=== PATIENT | male | born 1980 | race Caucasian/White ===

== ENCOUNTER 2016-08-23 06:02 | Emergency (ER) | payer MEDICAID, OTHER ==
[~2016-08-23] VITALS: Ht 175.3 cm; Wt 77.2 kg
[2016-08-23 06:04] VITALS: Ht 175.3 cm; Wt 77.2 kg
[2016-08-23] MEDS ORDERED: HALOPERIDOL 5 MG INJ IM STA (06:11)
[2016-08-23] MEDS ORDERED: LORAZEPAM 2 MG INJ IM ONE (06:30)
[2016-08-23 07:12] LABS: BASOPHILS % 0.1 % (0.0-2.0); EOSINOPHILS % 0.1 % (0.0-7.0); HEMOGLOBIN 16.4 g/dl (14.0-18.0); LYMPHOCYTES # 0.8 10^3/ul (0.8-2.9); MEAN CORPUSCULAR HEMOGLOBIN 30.1 pg (29.0-33.0); MEAN CORPUSCULAR HGB CONC 34.3 g/dl (32.0-37.0); MEAN CORPUSCULAR VOLUME 87.8 fl (82.0-101.0); MEAN PLATELET VOLUME 9.2 fl (7.4-10.4); MONOCYTE # 0.6 10^3/ul (0.3-0.9); NEUTROPHILS % 83.8 % (39.0-77.0); PLATELET COUNT 266 10^3/UL (140-440); RED BLOOD COUNT 5.47 10^6/ul (4.70-6.10); UNCORRECTED WBC 8.4 10^3/ul (4.8-10.8); WHITE BLOOD COUNT 8.4 10^3/ul (4.8-10.8)
[2016-08-23 07:16] LABS: ADD UMIC YES; URINE BILIRUBIN (Dip) NEGATIVE (NEGATIVE); URINE BLOOD (Dip) NEGATIVE (NEGATIVE); URINE COLOR LT. YELLOW (YELLOW); URINE KETONES (Dip) 15 (NEGATIVE); URINE LEUKOCYTE ESTERASE (Dip) NEGATIVE (NEGATIVE); URINE NITRITE (Dip) NEGATIVE (NEGATIVE); URINE TOTAL PROTEIN (Dip) 1+ (NEGATIVE); URINE UROBILINOGEN (Dip) 0.2 E.U./dL (0.1-1.0)
[2016-08-23 07:33] LABS: ALBUMIN 4.8 g/dl (3.3-4.9)
[2016-08-23 07:34] LABS: CHLORIDE 104 mmol/L (97-110); SODIUM 144 mmol/L (135-144)
[2016-08-23 07:36] LABS: ANION GAP 19 (8-16); ASPARTATE AMINO TRANSFERASE 31 IU/L (15-46); BILIRUBIN,INDIRECT 0.6 mg/dl (0-1.1); BILIRUBIN,TOTAL 0.6 mg/dl (0.2-1.3); CARBON DIOXIDE 25 mmol/L (21-31); CREATININE 0.83 mg/dl (0.61-1.24); POTASSIUM 3.6 mmol/L (3.5-5.1)
[2016-08-23 07:37] LABS: ALANINE AMINOTRANSFERASE 62 IU/L (13-69); ALBUMIN/GLOBULIN RATIO 1.41; ALKALINE PHOSPHATASE 68 IU/L (42-121); BLOOD UREA NITROGEN 11 mg/dl (7-20); CALCIUM 9.6 mg/dl (8.4-10.2); GLUCOSE 115 mg/dl (70-220); TOTAL PROTEIN 8.2 g/dl (6.1-8.1)
[2016-08-23 07:48] LABS: CONDITION 1
[2016-08-23 07:59] LABS: ACETAMINOPHEN < 10.0 ug/ml (10.0-30.0); SALICYLATE < 1.0 mg/dl (5.0-30.0)
[2016-08-23 08:10] LABS: ETHANOL < 10.0 mg/dl
[2016-08-23 08:21] LABS: BARBITURATES NEGATIVE (NEGATIVE)
[2016-08-23 08:22] LABS: BENZODIAZEPINES NEGATIVE (NEGATIVE); CANNABINOIDS NEGATIVE (NEGATIVE); COCAINE NEGATIVE (NEGATIVE)
--- NOTE | 2016-08-23 10:12 | ERA ---
ER Documentation Chief Complaint Date/Time DATE: 08/23/16 TIME: 10:09 Chief Complaint BIB RA, meth use, ranting about "god" states "i am a good person" denies SI HPI Patient is a 36-year-old male who presents with ambulance and police. Please note his history and physical exam is limited secondary to the patient's mental status. The patient was found knocking on doors earlier this morning. He had a similar event last week per police and they said that he was using methamphetamines although he does not tell me this himself. All he says is "I am and ovidio". It is difficult to obtain history otherwise. ROS All systems reviewed and are negative except as per history of present illness. Medications Home Meds Unable to Obtain Active Prescriptions or Reported Meds Allergies Allergies: Coded Allergies: Unknown: Unable to obtain (Unverified , 08/23/16) PMhx/Soc Medical and Surgical Hx: pt denies Medical Hx, pt denies Surgical Hx Hx Alcohol Use: Yes Hx Substance Use: Yes Hx Tobacco Use: Yes Smoking Status: Current every day smoker FmHx Unable to obtain Physical Exam Vitals Vital Signs Date Time Temp Pulse Resp B/P Pulse Ox O2 Delivery O2 Flow Rate FiO2 08/23/16 09:00 98.1 70 20 121/69 98 08/23/16 07:00 98.1 68 20 120/70 98 08/23/16 07:00 98.1 68 20 120/70 98 08/23/16 06:49 98.1 98 20 128/78 98 08/23/16 06:24 98.2 102 20 137/86 98 08/23/16 06:04 98.0 111 20 176/97 100 Physical Exam Const: Agitated Head: Atraumatic Eyes: Normal Conjunctiva ENT: Normal External Ears, Nose and Mouth. Neck: Full range of motion..~ No meningismus. Resp: Clear to auscultation bilaterally Cardio: Regular rate and rhythm, no murmurs Abd: Soft, non tender, non distended. Normal bowel sounds Skin: No petechiae or rashes Back: No midline or flank tenderness Ext: No cyanosis, or edema Neur: Awake but not answering questions appropriately Psych: Agitated and says over and over again "I am an ovidio" Result Diagram: 08/23/16 0650 08/23/16 0650 Results 24 hrs Laboratory Tests Test 08/23/16 06:50 08/23/16 06:57 Acetaminophen Level < 10.0ug/ml Alanine Aminotransferase (ALT/SGPT) 62IU/L Albumin 4.8g/dl Albumin/Globulin Ratio 1.41 Alkaline Phosphatase 68IU/L Anion Gap 19 Aspartate Amino Transf (AST/SGOT) 31IU/L Basophils # 0.010^3/ul Basophils % 0.1% Blood Urea Nitrogen 11mg/dl Calcium Level 9.6mg/dl Carbon Dioxide Level 25mmol/L Chloride Level 104mmol/L Creatinine 0.83mg/dl Direct Bilirubin 0.00mg/dl Eosinophils # 0.010^3/ul Eosinophils % 0.1% Ethyl Alcohol Level < 10.0mg/dl Globulin 3.40g/dl Glucose Level 115mg/dl Hematocrit 48.0% Hemoglobin 16.4g/dl Indirect Bilirubin 0.6mg/dl Lymphocytes # 0.810^3/ul Lymphocytes % 9.0% Mean Corpuscular Hemoglobin 30.1pg Mean Corpuscular Hemoglobin Concent 34.3g/dl Mean Corpuscular Volume 87.8fl Mean Platelet Volume 9.2fl Monocytes # 0.610^3/ul Monocytes % 7.0% Neutrophils # 7.010^3/ul Neutrophils % 83.8% Nucleated Red Blood Cells # 0.010^3/ul Nucleated Red Blood Cells % 0.0/100WBC Platelet Count 39887^3/UL Potassium Level 3.6mmol/L Red Blood Count 5.4710^6/ul Red Cell Distribution Width 13.0% Salicylates Level < 1.0mg/dl Sodium Level 144mmol/L Total Bilirubin 0.6mg/dl Total Protein 8.2g/dl White Blood Count 8.410^3/ul Urine Amphetamines Screen NEGATIVE Urine Barbiturates NEGATIVE Urine Benzodiazepines Screen NEGATIVE Urine Bilirubin NEGATIVE Urine Cannabinoids NEGATIVE Urine Clarity CLEAR Urine Coarse Granular Casts RARE Urine Cocaine Screen NEGATIVE Urine Color LT. YELLOW Urine Epithelial Cells FEW Urine Glucose 0.5%% Urine Granular Casts Urine Hemoglobin NEGATIVE Urine Ketones 15 Urine Leukocyte Esterase NEGATIVE Urine Microscopic RBC 2-5/HPF Urine Microscopic WBC 5-10/HPF Urine Nitrite NEGATIVE Urine Opiates Screen Pending Urine Other RARE Urine Specific [place] 1.020 Urine Total Protein 1+ Urine Urobilinogen 0.2 E.U./dL Urine pH 6.0 Current Medications Medications (Trade) Dose Ordered Sig/Justyn Route PRN Reason Start Time Stop Time Status Last Admin Dose Admin Haloperidol (Haldol) 5 mg ONCE STAT IM 08/23/16 06:11 08/23/16 06:12 DC 08/23/16 06:22 Lorazepam (Ativan) 2 mg ONCE ONCE IM 08/23/16 06:30 08/23/16 06:31 DC 08/23/16 06:22 Procedures/MDM Patient is a 36-year-old male who presents with what appears to be acute psychosis. He needed Haldol and Ativan to protect himself and to protect the staff. The patient had a full workup including laboratory studies and urine drug screen. His urine drug screen was negative for amphetamines even though the police said that he was doing meth. I am concerned that this may be acute psychotic episode and that he may have underlying psychiatric disease. The patient will need a psychiatric evaluation and I have ordered a psychiatric evaluation. He may require 5150 hold based on the result of this evaluation. At this point I do not see any sign of organic etiology for his symptoms. Critical Care: Time: 35 minutes excluding all billable procedures. Treatments/Evaluations: Close monitoring and treatment of unstable vital signs, cardiorespiratory, and neurologic status, while maintaining tight balance of fluid, respiratory, and cardiac interventions. Departure Diagnosis: Primary Impression: Psychosis Qualified Code: F29 - Psychosis, unspecified psychosis type Condition: ADIN Ya MD Aug 23, 2016 10:12
--- NOTE | 2016-08-23 12:01 | PSY ---
Date/Time of Note Date/Time of Note DATE: 08/23/16 TIME: 11:57 Psychiatric Subjective Eval Consent Pt consented to telemedicine: Yes Subjective Evaluation Patient location: emergency Chief Complaint: BIB RA, meth use, ranting about "god" states "i am a good person" denies SI History of present illness 36 yo male BIB police for knocking on random houses' doors. The similar incident happened a week ago. Pt was given Haldol, Ativan in ED. He is awake and alert, but quite disorganized, with disorganized speech. Then asked a questions he just startes or mumbles something inaudible. He appears to respond to IS. I was not able to obtain much of information from him. Past psychiatric history unknown Family History unknown Medical history Problems Medical Problems: (1) Psychosis Status: Acute Allergies: Coded Allergies: Unknown: Unable to obtain (Unverified , 08/23/16) Psychiatric Objective Eval Mental Status Examination: Appearance: Disheveled, Bizarre Eye Contact: Poor Psychomotor Activity: Other Behavior: Bizarre Speech: Slurred, Prolong Speech Latency AFFECT: Guarded Mood: Other Though Process: Tangential, Circumstantial Thought Content: Hallucinations Suicidal: No Homicidal: No Orientation: x2 Cognition: Alert Insight: Impared Judgement: Impared Laboratory Results Laboratory Tests Test 08/23/16 06:50 08/23/16 06:57 Acetaminophen Level < 10.0ug/ml Alanine Aminotransferase (ALT/SGPT) 62IU/L Albumin 4.8g/dl Albumin/Globulin Ratio 1.41 Alkaline Phosphatase 68IU/L Anion Gap 19 Aspartate Amino Transf (AST/SGOT) 31IU/L Basophils # 0.010^3/ul Basophils % 0.1% Blood Urea Nitrogen 11mg/dl Calcium Level 9.6mg/dl Carbon Dioxide Level 25mmol/L Chloride Level 104mmol/L Creatinine 0.83mg/dl Direct Bilirubin 0.00mg/dl Eosinophils # 0.010^3/ul Eosinophils % 0.1% Ethyl Alcohol Level < 10.0mg/dl Globulin 3.40g/dl Glucose Level 115mg/dl Hematocrit 48.0% Hemoglobin 16.4g/dl Indirect Bilirubin 0.6mg/dl Lymphocytes # 0.810^3/ul Lymphocytes % 9.0% Mean Corpuscular Hemoglobin 30.1pg Mean Corpuscular Hemoglobin Concent 34.3g/dl Mean Corpuscular Volume 87.8fl Mean Platelet Volume 9.2fl Monocytes # 0.610^3/ul Monocytes % 7.0% Neutrophils # 7.010^3/ul Neutrophils % 83.8% Nucleated Red Blood Cells # 0.010^3/ul Nucleated Red Blood Cells % 0.0/100WBC Platelet Count 89553^3/UL Potassium Level 3.6mmol/L Red Blood Count 5.4710^6/ul Red Cell Distribution Width 13.0% Salicylates Level < 1.0mg/dl Sodium Level 144mmol/L Total Bilirubin 0.6mg/dl Total Protein 8.2g/dl White Blood Count 8.410^3/ul Urine Amphetamines Screen NEGATIVE Urine Barbiturates NEGATIVE Urine Benzodiazepines Screen NEGATIVE Urine Bilirubin NEGATIVE Urine Cannabinoids NEGATIVE Urine Clarity CLEAR Urine Coarse Granular Casts RARE Urine Cocaine Screen NEGATIVE Urine Color LT. YELLOW Urine Epithelial Cells FEW Urine Glucose 0.5%% Urine Granular Casts Urine Hemoglobin NEGATIVE Urine Ketones 15 Urine Leukocyte Esterase NEGATIVE Urine Microscopic RBC 2-5/HPF Urine Microscopic WBC 5-10/HPF Urine Nitrite NEGATIVE Urine Other RARE Urine Specific [place] 1.020 Urine Total Protein 1+ Urine Urobilinogen 0.2 E.U./dL Urine pH 6.0 Assessment and Plan Assessment/Diagnosis [place] I: PSYCHOSIS NOS [place] II: DEFERED [place] III: NAD [place] IV: MODERATE [place] V: GAF 25 Recommendation/Plan Medication Management ZYPREXA 5 MG IM PRN Q 8 HRS AGITATION Follow-up/Disposition [facility] Recommendation: TRAY Medellin MD Aug 23, 2016 12:01
[2016-08-23 12:08] LABS: OPIATES Negative (NEGATIVE)
[2016-08-23] MEDS ORDERED: OLANZAPINE (ODT) 5 MG TAB ODT PRN (12:30)
[2016-08-23 13:49] VITALS: TEMP 98.1
[2016-08-23 19:00] VITALS: RESP 18
[2016-08-23 22:43] VITALS: BP 142/82; PULSE 105
== END 2016-08-23 22:44 | disposition short-term general hospital (02) ==
LOC: E/R 06:02
DX: F29 Unspecified psychosis not due to a substance or known physiological condition (principal); F17.210 Nicotine dependence, cigarettes, uncomplicated
CPT/HCPCS: 80053; 80306; 80307; 81001; 85025; J1630; J2060; 81003; 96372